=== PATIENT | female | born 1940 | race Caucasian/White ===

== ENCOUNTER 2018-05-29 10:11 | Inpatient (IN) | payer OTHER ==
[~2018-05-29] VITALS: Ht 160 cm; Wt 50.8 kg
[2018-05-29 10:11] VITALS: BP 138/86
[~2018-05-29 10:11] MED LIST: ACID REDUCER PO; AMITRIPTYLINE H10 M3 PO; AMITRIPTYLINE H25 M2 PO; AMITRIPTYLINE H75 M1 PO; AMLODIPINE BESY10 MG PO; ASPIR 8181 MG PO; AZITHROMYCIN 2250 MG PO; BACTRIM DS TAB1 EACH PO; BUSPIRONE HCL10 MG PO; CIPRO250 M1 PO; CIPROFLOXACIN500 M1 PO; CLONAZEPAM 0.50.5 M1 PO; CLONAZEPAM 1 MG1 M1 PO; CLONAZEPAM PO; COMPAZINE10 MG PO; CYCLOBENZAPRINE5 MG PO; CYMBALTA30 MG PO; DITROPAN XL5 MG PO; ESTRACE1 MG PO; FLEXERIL PO; HYDROCODON-ACE1 EAC8 PO; KEFLEX250 MG PO; LEVAQUIN 500 M500 M1 PO; LEVAQUIN 500 M500 MG PO; LIORESAL 10 MG10 MG PO; LISINOPRIL20 MG PO; LORCET 5-325 M1 EACH PO; LORTAB 5 MG/5001 TAB PO; MELATONIN3 MG PO; MOBIC15 MG PO; NEURONTIN 300300 M1 PO; NORCO 5-325 TA1 EACH PO; NORVASC 5 MG TAB5 MG PO; ONDANSETRON HCL4 M2 PO; OXYCODONE HCL 55 MG PO; PERCOCET 5-3251 EACH PO; PERCOCET 7.5-51 EACH PO; REQUIP 0.25 M0.25 MG PO; REQUIP 1 MG TABL1 M1 PO; SERTRALINE HCL100 MG PO; SIMVASTATIN40 MG PO; SIMVASTATIN80 MG PO; TRAZODONE HCL50 MG PO; TRIPLE ANTIBIOT28 G1 TP; TYLENOL325 MG PO; VENTOLIN HFA 1818 GM INH; VITAMIN D2000 UNIT PO; XANAX 0.25 MG0.25 MG PO; XANAX 0.5 MG0.5 M1 PO; XANAX 0.5 MG0.5 MG PO; XANAX XR1 MG PO; XANAX1 MG PO; ZESTRIL10 MG PO; ZOLOFT50 MG PO; ZZZQUIL50 MG/301 PO
[2018-05-29 11:11] LABS: ABSOLUTE BASOPHILS 0.1 thou/uL (0.0-0.2); ABSOLUTE EOSINOPHILS 0.3 thou/uL (0.0-0.7); ABSOLUTE LYMPHOCYTES 1.2 thou/uL (0.8-5.3); ABSOLUTE MONOCYTES 0.5 thou/uL (0.0-1.2); ABSOLUTE NEUTROPHILS 5.9 thou/uL (1.6-8.1); BASOPHILS 1.1 %; EOSINOPHILS 3.2 %; HEMATOCRIT 38.7 % (37.0-47.0); HEMOGLOBIN 12.7 gm/dL (12.0-15.0); LYMPHOCYTES 15.5 %; MCH 30.1 pg (26.0-34.0); MCHC 32.8 g/dL (28.0-37.0); MONOCYTES 6.4 %; MPV 6.7 fl. (7.2-11.1); NUCLEATED RBCS 0 /100WBC; PLATELET COUNT* 270 thou/uL (150-400); POLYS 73.8 %; RBC 4.21 mil/uL (4.20-5.00); RDW-CV 15.4 % (10.5-14.5)
[2018-05-29 11:22] LABS: BUN 38 mg/dL (7-18); CALCIUM 8.5 mg/dL (8.5-10.1); CHLORIDE 106 mmol/L (98-107); CO2 23 mmol/L (21-32); GLUCOSE 91 mg/dL (70-99)
[2018-05-29 11:29] LABS: ALBUMIN 3.4 g/dL (3.4-5.0); ALKALINE PHOSPHATASE 150 U/L (46-116); LIPASE 217 U/L (73-393); SGOT 102 U/L (15-37); SGPT 41 U/L (30-65); TOTAL BILIRUBIN 0.4 mg/dL (<0.1-1.0); TOTAL PROTEIN 6.7 g/dL (6.4-8.2); TROPONIN-I LEVEL <0.06 ng/mL (<0.06)
[2018-05-29 11:35] LABS: ANION GAP 10 mmol/L (7-16); SODIUM 139 mmol/L (136-145)
[2018-05-29 11:36] LABS: POTASSIUM 2.6 mmol/L (3.5-5.1)
[2018-05-29 12:49] LABS: URINE BILIRUBIN NEGATIVE (Negative); URINE BLOOD 2+ (Negative); URINE CLARITY CLEAR; URINE COLOR YELLOW; URINE GLUCOSE-RANDOM NEGATIVE (Negative); URINE KETONES TRACE (Negative); URINE LEUKOCYTES-REFLEX TRACE (Negative); URINE NITRITE-REFLEX NEGATIVE (Negative); URINE PROTEIN TRACE (Negative); URINE UROBILINOGEN 0.2 E.U./dl (0.2-1.0)
[2018-05-29 13:06] LABS: SQUAMOUS 0-3 Few /LPF (0-3); URINE WBC-REFLEX 0-5 Rare /HPF (0-5)
[2018-05-29 13:07] LABS: BACTERIA-REFLEX None Seen /HPF (None Seen); CRYSTALS None Seen /LPF (None Seen); HYALINE CASTS 0-3 Few /LPF (None Seen); URINE RBC 3-10 Few /HPF (0-2)
[2018-05-29 13:12] VITALS: BP 118/74
[2018-05-29 13:30] VITALS: BP 135/79
[2018-05-29 16:00] VITALS: BP 140/62
--- NOTE | 2018-05-29 16:18 | EKG ---
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 05/29/18 1618 1108 07 Primo Garvin MD, FACC /EPI
[2018-05-29 20:00] VITALS: BP 141/84
[2018-05-30] VITALS: BP 117/62
[2018-05-30 04:00] VITALS: BP 115/60
[2018-05-30 05:21] LABS: HEMATOCRIT 32.8 % (37.0-47.0); HEMOGLOBIN 10.8 gm/dL (12.0-15.0); MCH 30.8 pg (26.0-34.0); MCHC 32.9 g/dL (28.0-37.0); MCV 93.6 fL (80.0-100.0); MPV 7.6 fl. (7.2-11.1); RBC 3.5 mil/uL (4.20-5.00); RDW-CV 15.3 % (10.5-14.5); WBC 5.7 thou/uL (4.0-11.0)
[2018-05-30 06:01] LABS: CALCIUM 7.7 mg/dL (8.5-10.1); CREATININE 0.7 mg/dL (0.6-1.3); MAGNESIUM 2.1 mg/dL (1.8-2.4); POTASSIUM 3.4 mmol/L (3.5-5.1)
[2018-05-30 07:45] VITALS: BP 128/57
[2018-05-30 12:00] VITALS: BP 108/59
[2018-05-30 15:30] VITALS: BP 102/54
[2018-05-30 19:40] VITALS: BP 103/55
[2018-05-31] VITALS: BP 130/62
[2018-05-31 05:27] LABS: HEMOGLOBIN 10.1 gm/dL (12.0-15.0); MCH 30.5 pg (26.0-34.0); MCHC 32.7 g/dL (28.0-37.0); MCV 93.5 fL (80.0-100.0); MPV 7.6 fl. (7.2-11.1); RBC 3.31 mil/uL (4.20-5.00); RDW-CV 15.2 % (10.5-14.5); WBC 4.8 thou/uL (4.0-11.0)
[2018-05-31 05:55] LABS: CALCIUM 8.1 mg/dL (8.5-10.1); CREATININE 0.7 mg/dL (0.6-1.3); MAGNESIUM 1.8 mg/dL (1.8-2.4); POTASSIUM 3.7 mmol/L (3.5-5.1)
[2018-05-31 07:30] VITALS: BP 149/63
[2018-05-31 12:34] VITALS: BP 149/63
== END 2018-05-31 14:18 | disposition home or self-care (01) | DRG 392 ==
LOC: M.ERS 10:11 → M.2W 12:31 → M.TBA-ER 12:31 → M.2W 13:54
PROVIDERS: Nurse Practitioner Family; ADMIT Internal Medicine
DX: A08.4 Viral intestinal infection, unspecified (principal); N17.9 Acute kidney failure, unspecified; K59.00 Constipation, unspecified; I10 Essential (primary) hypertension; E78.00 Pure hypercholesterolemia, unspecified; E87.6 Hypokalemia; F41.0 Panic disorder [episodic paroxysmal anxiety]; D64.9 Anemia, unspecified; G89.29 Other chronic pain; R53.1 Weakness; M54.9 Dorsalgia, unspecified; Z90.49 Acquired absence of other specified parts of digestive tract; Z79.899 Other long term (current) drug therapy; Z90.710 Acquired absence of both cervix and uterus; Z88.8 Allergy status to other drugs, medicaments and biological substances; Z87.891 Personal history of nicotine dependence; Z88.6 Allergy status to analgesic agent; Z23 Encounter for immunization

== ENCOUNTER 2018-06-09 08:49 | Inpatient (IN) | payer OTHER ==
[~2018-06-09] VITALS: Ht 157.5 cm; Wt 46.7 kg
[2018-06-09 08:57] VITALS: BP 175/83
[2018-06-09] MEDS ORDERED: FLEXERIL PO (09:13)
[2018-06-09] MEDS ORDERED: DICLOFENAC SODI75 MG PO (09:14)
[2018-06-09] MEDS ORDERED: OMEPRAZOLE 20 M20 M1 PO (09:15)
[2018-06-09 09:36] LABS: HEMATOCRIT 33.1 % (37.0-47.0); HEMOGLOBIN 10.5 gm/dL (12.0-15.0); MCHC 31.8 g/dL (28.0-37.0); MCV 94.4 fL (80.0-100.0); NUCLEATED RBCS 0 /100WBC; PLATELET COUNT* 208 thou/uL (150-400); RDW-CV 16.2 % (10.5-14.5); WBC 12.6 thou/uL (4.0-11.0)
[2018-06-09 09:42] LABS: ANION GAP 5 mmol/L (7-16); BUN 16 mg/dL (7-18); CHLORIDE 104 mmol/L (98-107); CO2 30 mmol/L (21-32); CREATININE 0.8 mg/dL (0.6-1.3); GLUCOSE 112 mg/dL (70-99); POTASSIUM 4.2 mmol/L (3.5-5.1); SODIUM 139 mmol/L (136-145)
[2018-06-09 09:51] LABS: PROTIME 10.2 Seconds (9.20-11.50)
[2018-06-09 09:56] LABS: ALBUMIN 3.3 g/dL (3.4-5.0); ALKALINE PHOSPHATASE 235 U/L (46-116); LIPASE 371 U/L (73-393); NT-PRO BRAIN NAT PEPTIDE 436 pg/mL (<300); SGOT 949 U/L (15-37); SGPT 908 U/L (30-65); TOTAL BILIRUBIN 0.6 mg/dL (<0.1-1.0); TOTAL PROTEIN 6.7 g/dL (6.4-8.2); TROPONIN-I LEVEL <0.06 ng/mL (<0.06)
[2018-06-09 10:14] LABS: ABSOLUTE BASOPHILS 0.1 thou/uL (0.0-0.2); ABSOLUTE LYMPHOCYTES 0.9 thou/uL (0.8-5.3); ABSOLUTE MONOCYTES 0.1 thou/uL (0.0-1.2); ABSOLUTE NEUTROPHILS 11.5 thou/uL (1.6-8.1); PLATELET ESTIMATE ADEQUATE
[2018-06-09 11:10] LABS: URINE BILIRUBIN NEGATIVE (Negative); URINE BLOOD 3+ (Negative); URINE CLARITY CLEAR; URINE COLOR YELLOW; URINE GLUCOSE-RANDOM NEGATIVE (Negative); URINE KETONES NEGATIVE (Negative); URINE LEUKOCYTES-REFLEX NEGATIVE (Negative); URINE NITRITE-REFLEX NEGATIVE (Negative); URINE PROTEIN TRACE (Negative); URINE UROBILINOGEN 0.2 E.U./dl (0.2-1.0)
[2018-06-09 11:16] LABS: BACTERIA-REFLEX 1-9 Few /HPF (None Seen); CASTS None Seen /LPF (None Seen); CRYSTALS None Seen /LPF (None Seen); MUCUS None Seen strn/LPF (None Seen); SQUAMOUS 4-10 Moderate /LPF (0-3); URINE RBC >20 Many /HPF (0-2); URINE WBC-REFLEX 0-5 Rare /HPF (0-5)
[2018-06-09 12:30] VITALS: BP 154/84
[2018-06-09 12:40] VITALS: BP 148/72
[2018-06-09 16:26] VITALS: BP 123/71
--- NOTE | 2018-06-09 17:07 | 2DMMODE ---
[place] [address] 2 D/M-MODE ECHOCARDIOGRAM Name: NICHO DIAS Colette Room: [address] IN [facility]#: [id number] Admission: 06/09/18 Attend Phys: Clive Avila Discharge: Date of : 42 Date of Service: 06/09/18 1707 Report #: [id number] THIS REPORT FOR: //name// APPROVED REPORT Study performed: 06/09/2018 14:50:30 EXAM: Comprehensive 2D, Doppler, and color-flow Echocardiogram Patient Location: In-Patient Room #: [facility] Status: routine BSA: 1.48 HR: 92 bpm BP: 154/84 mmHg Rhythm: NSR Other Information Study Quality: Good Indications Syncope 2D Dimensions IVSd: 9.37 (7-11mm) LVOT Diam: 20.08 (18-24mm) LVDd: 38.90 mm PWd: 10.12 (7-11mm) LVDs: 21.64 (25-40mm) Aortic Root: 30.55 mm Volumes Left Atrial Volume (Systole) LA ESV Index: 27.60 mL/m2 Aortic Valve AoV Peak Jonathan.: 2.21 m/s AO Peak Gr.: 19.47 mmHg LVOT Max P.28 mmHg AO Mean Gr.: 9.81 mmHg LVOT Mean P.87 mmHg LVOT Max V: 1.35 m/s AO V2 VTI: 37.18 cm LVOT Mean V: 0.91 m/s JUMANA (VTI): 2.18 cm2 LVOT V1 VTI: 25.55 cm Mitral Valve E/A Ratio: 0.71 MV Decel. Time: 205.78 ms MV E Max Jonathan.: 0.97 m/[place] [address] 2 D/M-MODE ECHOCARDIOGRAM Name: NICHO DIAS Room: [address] IN M.R.#: [id number] Admission: 06/09/18 Attend Phys: Clive Avila Discharge: Date of : 42 Date of Service: 06/09/18 1707 Report #: [id number] MV PHT: 59.67 ms MVA (PHT): 3.69 cm2 TDI E/Lateral E': 10.78 E/Medial E': 12.13 Medial E' Jonathan.: 0.08 m/s Lateral E' Jonathan.: 0.09 m/s Pulmonary Valve PV Peak Jonathan.: 1.26 m/s PV Peak Gr.: 6.31 mmHg Tricuspid Valve RAP Estimate: 5.00 mmHg TR Peak Gr.: 19.68 mmHg RVSP: 25.00 mmHg PA Pressure: 25.00 mmHg Left Ventricle The left ventricle is normal size. There is normal LV segmental wall motion. There is normal left ventricular wall thickness. Left ventricular systolic function is normal. The left ventricular ejection fraction is within the normal range. LVEF is 60-65%. Grade I - abnormal relaxation pattern. Right Ventricle The right ventricle is normal size. The right ventricular systolic function is normal. Atria The left atrium size is normal. The right atrium size is normal. Aortic Valve Mild aortic valve sclerosis. Trace aortic regurgitation. There is no aortic valvular stenosis. Mitral Valve There is mitral annular calcification. Trace mitral regurgitation. No evidence of mitral valve stenosis. Tricuspid Valve The tricuspid valve is normal in structure. Trace tricuspid regurgitation. No pulmonary hypertension. Pulmonic Valve Pulmonic valve is not well visualized. There is no pulmonic valvular [place] [address] 2 D/M-MODE ECHOCARDIOGRAM Name: DIASNICHO Room: [address] IN [facility]#: [id number] Admission: 06/09/18 Attend Phys: Clive Avila Discharge: Date of : 42 Date of Service: 06/09/18 1707 Report #: [id number] Great Vessels The aortic root is normal in size. IVC is normal in size and collapses >50% with inspiration. Pericardium There is no pericardial effusion. <Conclusion> LVEF is 60-65%. Mild aortic valve sclerosis. <ELECTRONICALLY SIGNED> By: Austin Roberts MD, FACC 06/09/181706 06 06 Austin Roberts MD, FACC /INF
--- NOTE | 2018-06-09 17:08 | EKG ---
[place] [address] ELECTROCARDIOGRAM REPORT Name: NICHO DIAS Room: [address] ADM IN .R.#: [id number] Admission: 06/09/18 Attend Phys: Clive Sanchez, Discharge: Date of : 42 Report #: [id number] THIS REPORT FOR: //name// [facility] ED Test Date: 2018-06-09 Test Time: 09:06:36 Pat Name: NICHO DIAS Department: Room: [facility] Gender: F Crisis Specialist: [place] MALDONADO : 1940 Requested By: Chong Olivares Order Number: [id number] MD: Austin Roberts Measurements Intervals [place] Rate: 96 P: 37 [place]: 175 QRS: 67 QRSD: 131 T: 37 QT: 403 QTc: 510 Interpretive Statements Sinus rhythm Right bundle branch block Compared to ECG 05/29/2018 11:08:24 No significant changes Electronically Signed On 06-09-2018 17:08:03 CDT by Austin Roberts [email or web address] <ELECTRONICALLY SIGNED> By: Austin Roberts MD, [facility] 06/09/18 1708 0906 Austin Roberts MD, [facility] /EPI
[2018-06-09 19:35] VITALS: BP 129/72; BP 94/55
[2018-06-09 23:12] LABS: HEPATITIS B SURFACE AG Negative (Negative)
[2018-06-10] VITALS (7 sets, daily range): BP systolic 130–163; BP diastolic 66–91
[2018-06-10 04:54] LABS: HEMATOCRIT 28.3 % (37.0-47.0); HEMOGLOBIN 9.3 gm/dL (12.0-15.0); MCH 30.8 pg (26.0-34.0); MCHC 32.8 g/dL (28.0-37.0); MCV 93.9 fL (80.0-100.0); MPV 7.1 fl. (7.2-11.1); RBC 3.01 mil/uL (4.20-5.00); RDW-CV 15.5 % (10.5-14.5); WBC 9.5 thou/uL (4.0-11.0)
[2018-06-10 05:13] LABS: ALBUMIN 2.5 g/dL (3.4-5.0); CREATININE 0.7 mg/dL (0.6-1.3); MAGNESIUM 1.8 mg/dL (1.8-2.4); TOTAL BILIRUBIN 0.3 mg/dL (<0.1-1.0); TOTAL PROTEIN 5.4 g/dL (6.4-8.2)
[2018-06-10 05:47] LABS: POTASSIUM 3.1 mmol/L (3.5-5.1)
--- NOTE | 2018-06-10 10:58 | CON ---
[address] [address] CONSULTATION Name: NICHO DIAS Colette Room: [address] IN M.R.#: [id number] Admission: 06/09/18 Attend Phys: Clive Sanchez, Discharge: Date of : 42 Report #: [id number] THIS REPORT FOR: //name// CC: Primo Sanchez Neurology Consultation HISTORY OF PRESENT ILLNESS: The patient is a 77-year-old female who presents to the emergency room after a fall at home. Apparently, the patient fell sometime in the middle of the night and then lied on the floor for approximately 5 hours. Her daughter and grandson brought her to the emergency room. The patient states that she laid there because she did not want to wake anyone up at the time of night. Apparently, the patient had been here 2 weeks previously with a low potassium level. The patient lives with her daughter in a home that was purchased by her grandson. He plans on moving into the home, so he can take care of his grandmother. He would like to see her walk and he is concerned about the medications that she takes. PAST MEDICAL HISTORY: Anxiety. PAST SURGICAL HISTORY: Stomach ulcers surgically repaired times 2, half of stomach removed, disk removed, ovarian cyst removed, hysterectomy, bladder repair times 2, cervical spine surgery, appendectomy, cholecystectomy, back surgery. MEDICATIONS: Sertraline 100 mg daily, Requip 1 mg b.i.d., alprazolam 1 mg at bedtime, clonazepam 1 mg b.i.d., amitriptyline 25 mg at bedtime, cyclobenzaprine 10 mg t.i.d., diclofenac 75 mg b.i.d., omeprazole 20 mg daily. ALLERGIES: ASPIRIN, TYLENOL, SUMATRIPTAN. PHYSICAL EXAMINATION: VITAL SIGNS: Temperature 38.3, pulse rate 101, respiratory rate 17, blood pressure 148/72, bedside pulse oximetry 95% on 3 L nasal cannula. NEUROLOGIC: Cranial nerves 2-12 are grossly intact. Motor exam demonstrates symmetrical strength in all 4 extremities with tone and bulk normal. Reflexes are symmetrical throughout. Coordination demonstrates no evidence of dysmetria. Gait is not tested. LABORATORY DATA: Hematology: White blood cell count 12.6, hemoglobin 10.5, hematocrit 33.1, MCV 94.4, platelet count 208,000. Coagulation: INR 1. Urinalysis: 3+ blood. Chemistry: Sodium 139, potassium 4.2, chloride 104, carbon dioxide 30, BUN 16, creatinine 0.8, GFR 70, glucose 112, calcium 9, magnesium 2, total bilirubin 0.6, AST 949, ALT 908, alkaline phosphatase 235, creatinine kinase 1719. BNP 436, total protein 6.7, albumin 3.3, lipase 371. [place] [address] CONSULTATION Name: NICHO DIAS Colette Room: [address] IN .R.#: [id number] Admission: 06/09/18 Attend Phys: Clive Sanchez, Discharge: Date of : 42 Report #: [id number] IMAGING STUDIES: CT scan of the head demonstrates no acute intracranial abnormality. IMPRESSION: I am concerned about the medications the patient is taking. These medications can affect her balance. In particular, I am talking about clonazepam 1 mg b.i.d. and alprazolam 1 mg at bedtime. I have reduced the dose of alprazolam to 0.5 mg at bedtime. In the future, I think consideration should be given to reducing these medications to the smallest possible dose. The patient has elevated liver functions, I have ordered an ammonia level. I see that a hepatitis panel has been ordered and is pending. I also think therapy would be good for the patient. According to her grandson, she is quite sedentary. I thank you for your kind referral of the patient. We will continue to follow her with you. <ELECTRONICALLY SIGNED> By: Lana Haile DO 06/10/18 1058 1423 [id number] Haile DO /rashid
[2018-06-11] VITALS (7 sets, daily range): BP systolic 135–195; BP diastolic 76–971
[2018-06-11 05:02] LABS: HEMOGLOBIN 9.5 gm/dL (12.0-15.0); MCH 30.6 pg (26.0-34.0); MCHC 32.6 g/dL (28.0-37.0); MCV 93.7 fL (80.0-100.0); MPV 7.7 fl. (7.2-11.1); RBC 3.1 mil/uL (4.20-5.00); RDW-CV 15.6 % (10.5-14.5); WBC 7.5 thou/uL (4.0-11.0)
[2018-06-11 05:21] LABS: ALBUMIN 2.6 g/dL (3.4-5.0); CALCIUM 8.5 mg/dL (8.5-10.1); CREATININE 0.7 mg/dL (0.6-1.3); MAGNESIUM 1.7 mg/dL (1.8-2.4); POTASSIUM 3.7 mmol/L (3.5-5.1); TOTAL BILIRUBIN 0.3 mg/dL (<0.1-1.0); TOTAL PROTEIN 5.9 g/dL (6.4-8.2)
--- NOTE | 2018-06-11 07:39 | CON ---
[address] [address] CONSULTATION Name: LARISSANICHO Colette Room: [address] IN M.R.#: [id number] Admission: 06/09/18 Attend Phys: Clive Sanchez, Discharge: Date of : 42 Report #: [id number] THIS REPORT FOR: //name// CC: Primo Sanchez Clive Sanchez DATE OF SERVICE: 06/10/2018 REQUESTING PHYSICIAN: Dr. Sanchez. REASON FOR CONSULTATION: Rib fractures. DISCUSSION: The patient is a 77-year-old woman who was brought to the Emergency department yesterday. She apparently fallen in her bathroom at home, had fallen off the toilet. However, she cannot tell me how she fell. Apparently, laid on the floor for up to 5 hours. Reportedly, was hesitant to call for help as she did not want to bother other family members. She was seen in the ED then yesterday. Was complaining of some pain at that time in her throat, in her head. Chest x-ray was unremarkable. Her LFTs were abnormal. She did have a CT scan done of her abdomen. On that study, did reveal that she had fractures posteriorly on the 9th and 10th ribs. It was thought they were probably acute. She has been on oxygen since admission. Interestingly, however, she denies any pain on the left side. She is complaining of pain in her right chest. She is also quite upset that she is not getting more pain medication to keep her comfortable. She is a lifelong nonsmoker, but does have a history of significant secondhand smoke exposure. She has had episodes of pneumonia in the past. One of them also apparently was complicated by a parapneumonic effusion requiring thoracentesis. No surgery was required. It is not clear if she may have some underlying asthma or obstructive lung disease. She is not normally on any oxygen or inhalers at home. Group apparently has seen her in the past when she was in the hospital. Does not follow at least in our office at this time. She is an extremely poor historian. She is very tangential because she is trying to focus on events from some time back as well as concerns about her daughter and potential inability to continue to live at home alone. Currently, she is denying any shortness of breath. Minimal cough. She complains of a sore throat because has been difficult to swallow that has been present for some time. She does have a history also of partial gastrectomy; hysterectomy; cholecystectomy; back and neck surgery; right clavicular fracture; right arm fracture, details not clear; dyslipidemia; hypertension. [place] [address] CONSULTATION Name: DIASNICHO Room: [address] IN M.R.#: [id number] Admission: 06/09/18 Attend Phys: Clive Sanchez, Discharge: Date of : 42 Report #: [id number] probably has some baseline dementia as well. HOME MEDICATIONS: Reportedly have been omeprazole, Voltaren, Flexeril, amitriptyline, clonazepam, p.r.n. Xanax, ReQuip, and sertraline. ALLERGIES: ASPIRIN, ACETAMINOPHEN. SOCIAL HISTORY: Currently is a nonsmoker. However, did have secondhand smoke exposure. FAMILY HISTORY: Per old records is positive for lung cancer, coronary artery disease. REVIEW OF SYSTEMS: Question some of the reliability. It is extremely difficult to get from her as she tends to jump around. She does acknowledge difficulty swallowing because of her sore throat. Typically does not have any shortness of breath. She also notes she is hungry and wants food and water. States she does not want any additional testing done. Complaining of pain, right anterior chest wall, also her head. Denies any pain in the left chest area. She denies true syncope or palpitations. PHYSICAL EXAMINATION: GENERAL: The patient is an elderly woman. She does look chronically ill. She is currently, sitting up in a chair. Has O2 running at 2 liters per nasal cannula. She is alert. She is in no acute distress. Was quite emotional and starting to cry when she talks about family situations. Feels like people are being mean to her. HEENT: Head is normocephalic. Sclerae nonicteric. Mucous membranes do look a little dry. NECK: Negative for adenopathy. Neck veins are not full. She has no supraclavicular adenopathy. She does have a bit of firm area over her right clavicle (reportedly was fractured years ago). HEART: Regular with occasional extrasystole. Has a grade 1/6 systolic murmur. No S3 is heard. LUNGS: Reveal breath sounds to be just minimally diminished. She does have a few faint crackles heard in the bases bilaterally. There is no pain with palpation over her left chest wall. On the right, she does complain of pain right anterior chest wall. I do not see any bruising or point tenderness. ABDOMEN: Soft, without appreciable hepatosplenomegaly. EXTREMITIES: She has arthritic changes of her hands. No clubbing. Radial pulses are present. Lower extremities are thin. She has some muscle wasting. No definite edema is noted. SKIN: Warm and dry. NEUROLOGIC: She is moving all extremities. LABORATORY AND X-RAY FINDINGS: Echocardiogram done this admission revealed [facility] [address] [place] [address] CONSULTATION Name: NICHO DIAS Colette Room: [address] IN ..#: [id number] Admission: 06/09/18 Attend Phys: Clive Sanchez, Discharge: Date of : 42 Report #: [id number] preserved LV function at 60-65%. She had grade 1 diastolic dysfunction. RV was normal. She had no significant valvular disease. Chem profile: Her sodium is 143, potassium 3.1, BUN 9, creatinine 0.7. Transaminases are markedly elevated, those are improving. Bilirubin was normal. Albumin 2.5. White blood cell count 9500, hemoglobin 9.3, hematocrit 28.3, platelets 154,000. X-rays were reviewed. The chest x-ray done yesterday was a portable study. No acute findings are noted. She did have a CT scan done of her abdomen and pelvis. As noted above, posterior rib fractures on the left were noted. Reviewing her other imaging studies, however, she had a CT scan done of her abdomen on 05/29/2018. Rib fractures were noted at that time as well. IMPRESSION: 1. Left rib fractures. Date of injury unknown. She has no pain in this area. They were also noted on imaging studies done on 05/29/2018 suggesting it came from another fall or injury. 2. Status post fall. Does have some soft tissue injuries. She is complaining of right anterior chest wall pain. 3. Possible dementia. 4. Elevated LFTs (transaminase), improving. Evaluation underway. 5. Appears to be a significant fall risk. RECOMMENDATIONS: 1. Pain control is really the only thing necessary for her rib fractures at this time. She has no complications related to that. However, given her dementia and issues with falls, certainly need to be cautious and avoid oversedation or overmedicating. She has very poor insight into this. 2. Activity as tolerated. Minimize risk of developing pneumonia. 3. Wean off O2. 4. GI evaluation as per primary service and GI. 5. We can see again if needed. <ELECTRONICALLY SIGNED> By: Lian Rosario MD 06/11/18 0739 1125 0044Lian Rosario MD /nt
[2018-06-12] VITALS: BP 170/85
[2018-06-12 04:00] VITALS: BP 148/80
[2018-06-12 04:05] VITALS: BP 170/85
[2018-06-12 05:20] LABS: HEMOGLOBIN 10.2 gm/dL (12.0-15.0); MCH 30.5 pg (26.0-34.0); MCHC 32.9 g/dL (28.0-37.0); MCV 92.8 fL (80.0-100.0); MPV 7.4 fl. (7.2-11.1); RBC 3.34 mil/uL (4.20-5.00); RDW-CV 15.3 % (10.5-14.5); WBC 5.6 thou/uL (4.0-11.0)
[2018-06-12 06:24] LABS: ALBUMIN 2.9 g/dL (3.4-5.0); CALCIUM 8.7 mg/dL (8.5-10.1); CREATININE 0.7 mg/dL (0.6-1.3); MAGNESIUM 1.7 mg/dL (1.8-2.4); TOTAL BILIRUBIN 0.3 mg/dL (<0.1-1.0); TOTAL PROTEIN 6.5 g/dL (6.4-8.2)
[2018-06-12 08:45] VITALS: BP 155/94
[2018-06-12 10:07] LABS: ANA INTERPRETATION Positive (Negative)
--- NOTE | 2018-06-12 11:22 | CON ---
[address] [address] CONSULTATION Name: DIASELIJAHNICHO Colette Room: [address] IN M.R.#: [id number] Admission: 06/09/18 Attend Phys: Clive Sanchez, Discharge: Date of : 42 Report #: [id number] THIS REPORT FOR: //name// CC: Primo Sanchez DATE OF SERVICE: 06/10/2018 HISTORY OF PRESENT ILLNESS: This is a pleasant 77-year-old female with past medical history significant for peptic ulcer disease, hypertension, hyperlipidemia, who presented with one episode of syncope. The patient says that following that she recovered, however, was unable to stand up and had laid on the floor for a few hours. The patient denies any chest pain, nausea, vomiting with dizziness at this time, headaches or palpitations. GI service has been consulted for evaluation of elevated liver enzymes. The patient denies any prior history of liver disease. She denies any prior episodes of jaundice, weight loss or pruritus. The patient had a cholecystectomy performed in the remote past and reports that she had her surgery performed for peptic ulcer disease twice in the past. The patient denies any prior history of viral hepatitis. The patient also denies starting any new medications or taking any hgyz-bby-xxyuvoo or herbal supplements. PAST MEDICAL HISTORY: As mentioned above. The patient has a past medical history of hypertension, hyperlipidemia, chronic anemia and peptic ulcer disease. PAST SURGICAL HISTORY: The patient had disk surgery in 1972, ovarian cyst removed in 1963, hysterectomy in 1973, bladder repair in the , neck surgery in 1998. Remote history of appendectomy and cholecystectomy. SOCIAL HISTORY: The patient denies smoking, alcohol or recreational drug use. FAMILY HISTORY: There is no family history of liver disease or colorectal cancer. REVIEW OF SYSTEMS: A comprehensive 10-point review of systems is negative except for weakness and fatigue. PHYSICAL EXAMINATION: VITAL SIGNS: Temperature 37.0, pulse rate 101, respirations 20, blood pressure 94/55. GENERAL: The patient is alert, awake, oriented x 3. HEENT: Mucous membranes are moist. There is no congestion. NECK: Supple. There is no supraclavicular lymphadenopathy. CARDIOVASCULAR: Rate and rhythm regular, S1, [place] [address] CONSULTATION Name: NICHO DIAS Room: [address] IN [facility]#: [id number] Admission: 06/09/18 Attend Phys: Clive Sanchez, Discharge: Date of : 42 Report #: [id number] ABDOMEN: Soft. There is no distention, no guarding or rigidity. Bowel sounds are present. EXTREMITIES: Warm, well perfused. There is no edema. NEUROLOGIC: There is no focal neurological deficit. SKIN: Warm and dry. LABORATORY DATA: Hemoglobin 10.5, hematocrit 33.1, WBC count 12.6, platelet count 208. AST 949, ALT 908, alkaline phosphatase 235, total bilirubin 0.3. CT abdomen demonstrates acute fractures of the posterolateral left 9th and 10th ribs, chronic lumbar degenerative changes, atelectasis at both lung bases, bladder distended measuring 10 x 17 cm in thickness. Trauma in bile ducts. ASSESSMENT AND PLAN: A pleasant 77-year-old female with past medical history significant for hypertension, hyperlipidemia with prior history of peptic ulcer disease, status post surgery and cholecystectomy, who is presenting for evaluation of syncope. The patient was incidentally found to have elevated liver enzymes and the GI Service has been consulted for further evaluation. Based on the clinical history, the patient appears to have shock liver and the liver enzyme changes can be attributed to this. However, I would like to rule out acute viral hepatitis and acute autoimmune hepatitis. Labs for both have been sent. It is also pertinent to rule out portal or hepatic vein thrombosis as a possible cause of elevated liver enzymes. An abdominal ultrasound with Doppler has been ordered. Further evaluation will depend on the results of these tests. <ELECTRONICALLY SIGNED> By: Guero Haywood MD 06/12/18 1122 1749 0102Guero Haywood MD /nt
[2018-06-12 11:40] VITALS: BP 155/94
[2018-06-12 12:20] VITALS: BP 155/94
[2018-06-12 16:10] LABS: HEPATITIS B SURFACE AG Negative (Negative)
== END 2018-06-12 14:35 | disposition home health service (06) | DRG 314 ==
LOC: M.ERS 08:49 → M.2W 11:12 → M.TBA-ER 11:12 → M.2W 12:59
PROVIDERS: Emergency Medicine; Internal Medicine Gastroenterology; ADMIT Family Medicine
DX: I95.9 Hypotension, unspecified (principal); R65.11 Systemic inflammatory response syndrome (SIRS) of non-infectious origin with acute organ dysfunction; N39.0 Urinary tract infection, site not specified; S22.42XA Multiple fractures of ribs, left side, initial encounter for closed fracture; M62.82 Rhabdomyolysis; Z68.1 Body mass index [BMI] 19.9 or less, adult; E44.0 Moderate protein-calorie malnutrition; T50.995A Adverse effect of other drugs, medicaments and biological substances, initial encounter; E86.0 Dehydration; R55 Syncope and collapse; E87.6 Hypokalemia; G47.00 Insomnia, unspecified; F41.9 Anxiety disorder, unspecified; F32.9 Major depressive disorder, single episode, unspecified; G25.81 Restless legs syndrome; D64.9 Anemia, unspecified; K75.89 Other specified inflammatory liver diseases; R74.0 Nonspecific elevation of levels of transaminase and lactic acid dehydrogenase [LDH]; E78.00 Pure hypercholesterolemia, unspecified; I10 Essential (primary) hypertension; E78.5 Hyperlipidemia, unspecified; W18.11XA Fall from or off toilet without subsequent striking against object, initial encounter; Z90.49 Acquired absence of other specified parts of digestive tract; Z90.710 Acquired absence of both cervix and uterus; Z88.6 Allergy status to analgesic agent; Z88.8 Allergy status to other drugs, medicaments and biological substances; Z87.891 Personal history of nicotine dependence; Z87.11 Personal history of peptic ulcer disease; Y93.89 Activity, other specified; Y92.091 Bathroom in other non-institutional residence as the place of occurrence of the external cause; Y99.8 Other external cause status; Z87.311 Personal history of (healed) other pathological fracture; Z79.2 Long term (current) use of antibiotics; Z79.899 Other long term (current) drug therapy

== ENCOUNTER → 2018-06-20 | Outpatient (CLI) | payer OTHER ==
[~2018-06-20] MED LIST changes: +DICLOFENAC SODI75 MG PO; +OMEPRAZOLE 20 M20 M1 PO
== END ==
LOC: M.ULTRA 08:29
DX: K83.8 Other specified diseases of biliary tract (principal)

== ENCOUNTER 2018-09-05 15:49 | Emergency (ER) | payer OTHER ==
[~2018-09-05] VITALS: Ht 160 cm; Wt 45.4 kg
[2018-09-05 16:59] LABS: ABSOLUTE BASOPHILS 0.1 thou/uL (0.0-0.2); ABSOLUTE EOSINOPHILS 0.3 thou/uL (0.0-0.7); ABSOLUTE LYMPHOCYTES 1.5 thou/uL (0.8-5.3); ABSOLUTE MONOCYTES 0.5 thou/uL (0.0-1.2); ABSOLUTE NEUTROPHILS 3.9 thou/uL (1.6-8.1); BASOPHILS 1.2 %; EOSINOPHILS 5.4 %; HEMATOCRIT 26.2 % (37.0-47.0); HEMOGLOBIN 8.2 gm/dL (12.0-15.0); LYMPHOCYTES 23.7 %; MCH 26.3 pg (26.0-34.0); MCHC 31.4 g/dL (28.0-37.0); MONOCYTES 7.3 %; NUCLEATED RBCS 0 /100WBC; PLATELET COUNT* 333 thou/uL (150-400); POLYS 62.4 %; RBC 3.12 mil/uL (4.20-5.00); RDW-CV 16.7 % (10.5-14.5); WBC 6.3 thou/uL (4.0-11.0)
[2018-09-05 17:03] LABS: CALCIUM 8.6 mg/dL (8.5-10.1); CREATININE 1.1 mg/dL (0.6-1.3); INR 0.9; POTASSIUM 3.8 mmol/L (3.5-5.1); PROTIME 9.4 Seconds (9.20-11.50)
[2018-09-05 17:07] LABS: ALBUMIN 3.2 g/dL (3.4-5.0); MAGNESIUM 2.2 mg/dL (1.8-2.4); TOTAL BILIRUBIN 0.2 mg/dL (<0.1-1.0); TOTAL PROTEIN 6.5 g/dL (6.4-8.2)
[2018-09-05 17:17] LABS: URINE BILIRUBIN NEGATIVE (Negative); URINE BLOOD NEGATIVE (Negative); URINE CLARITY CLEAR; URINE COLOR YELLOW; URINE GLUCOSE-RANDOM NEGATIVE (Negative); URINE KETONES NEGATIVE (Negative); URINE LEUKOCYTES-REFLEX 1+ (Negative); URINE NITRITE-REFLEX NEGATIVE (Negative); URINE PROTEIN NEGATIVE (Negative); URINE SPECIFIC GRAVITY 1.015 (1.005-1.030); URINE UROBILINOGEN 0.2 E.U./dl (0.2-1.0)
[2018-09-05 17:38] LABS: SQUAMOUS 0-3 Few /LPF (0-3)
[2018-09-05 17:39] LABS: BACTERIA-REFLEX 1-9 Few /HPF (None Seen); CASTS None Seen /LPF (None Seen); CRYSTALS None Seen /LPF (None Seen); URINE RBC 0-2 Rare /HPF (0-2); URINE WBC-REFLEX 6-15 Few /HPF (0-5)
[2018-09-05 19:49] VITALS: BP 160/88
--- NOTE | 2018-09-06 18:44 | EKG ---
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 MEDINA : 1940 Requested By: Zoe yLons Order Number: [id number] MD: Juan Beatty Measurements Intervals [place] Rate: 80 P: 39 ND: 165 QRS: 53 QRSD: 135 T: 34 QT: 423 QTc: 488 Interpretive Statements Sinus rhythm Right bundle branch block Compared to ECG 06/09/2018 09:06:36 No significant changes Electronically Signed On 09-06-2018 18:44:46 AUTOMATIC VULCANIZING LEAD OPERATOR by Juan Beatty [email or web address] <ELECTRONICALLY SIGNED> By: Juan Beatty MD, [facility] 09/06/18 1844 1632 31 Juan Beatty MD, FACC /EPI
== END 2018-09-05 19:53 | disposition home or self-care (01) ==
LOC: M.ERS 15:49
PROVIDERS: Personal Emergency Response Attendant
DX: R41.82 Altered mental status, unspecified (principal); F41.0 Panic disorder [episodic paroxysmal anxiety]; I10 Essential (primary) hypertension; E78.00 Pure hypercholesterolemia, unspecified; Z90.49 Acquired absence of other specified parts of digestive tract; Z88.6 Allergy status to analgesic agent; Z86.2 Personal history of diseases of the blood and blood-forming organs and certain disorders involving the immune mechanism; Z88.8 Allergy status to other drugs, medicaments and biological substances; Z90.710 Acquired absence of both cervix and uterus; Z87.891 Personal history of nicotine dependence

== ENCOUNTER 2018-11-14 17:06 | Inpatient (IN) | payer OTHER ==
[~2018-11-14] VITALS: Ht 160 cm; Wt 49.9 kg
[2018-11-14 17:19] VITALS: BP 185/104
[2018-11-14] MEDS ORDERED: BUSPIRONE HCL10 MG PO (17:25)
[2018-11-14 17:39] LABS: ABSOLUTE EOSINOPHILS 0.1 thou/uL (0.0-0.7); ABSOLUTE LYMPHOCYTES 0.6 thou/uL (0.8-5.3); ABSOLUTE MONOCYTES 0.3 thou/uL (0.0-1.2); BASOPHILS 0.4 %; EOSINOPHILS 1.9 %; HEMATOCRIT 37.2 % (37.0-47.0); HEMOGLOBIN 12.4 gm/dL (12.0-15.0); LYMPHOCYTES 12.3 %; MCH 29.9 pg (26.0-34.0); MCHC 33.3 g/dL (28.0-37.0); MONOCYTES 6.2 %; MPV 6.9 fl. (7.2-11.1); NUCLEATED RBCS 0 /100WBC; PLATELET COUNT* 190 thou/uL (150-400); POLYS 79.2 %; RBC 4.13 mil/uL (4.20-5.00); RDW-CV 21.2 % (10.5-14.5)
[2018-11-14 17:53] LABS: ALBUMIN 3.6 g/dL (3.4-5.0); CALCIUM 9.2 mg/dL (8.5-10.1); CREATININE 0.9 mg/dL (0.6-1.3); POTASSIUM 3.5 mmol/L (3.5-5.1); TOTAL BILIRUBIN 0.4 mg/dL (<0.1-1.0); TOTAL PROTEIN 6.9 g/dL (6.4-8.2)
[2018-11-14 17:59] LABS: URINE BILIRUBIN NEGATIVE (Negative); URINE BLOOD 1+ (Negative); URINE CLARITY CLEAR; URINE COLOR YELLOW; URINE GLUCOSE-RANDOM NEGATIVE (Negative); URINE KETONES NEGATIVE (Negative); URINE PROTEIN NEGATIVE (Negative); URINE SPECIFIC GRAVITY 1.015 (1.005-1.030); URINE UROBILINOGEN 0.2 E.U./dl (0.2-1.0)
[2018-11-14 18:01] LABS: URINE LEUKOCYTES-REFLEX 2+ (Negative); URINE NITRITE-REFLEX POSITIVE (Negative)
[2018-11-14 18:05] LABS: MUCUS None Seen strn/LPF (None Seen); SQUAMOUS 0-3 Few /LPF (0-3)
[2018-11-14 18:06] LABS: BACTERIA-REFLEX >30 Many /HPF (None Seen); CASTS None Seen /LPF (None Seen); CRYSTALS None Seen /LPF (None Seen); URINE RBC 0-2 Rare /HPF (0-2); URINE WBC-REFLEX >25 Many /HPF (0-5)
[2018-11-14 18:11] LABS: ANISOCYTOSIS 2+
[2018-11-14 22:00] VITALS: BP 147/79
[2018-11-14 22:12] VITALS: BP 151/82
--- NOTE | 2018-11-15 02:32 | NUR ---
ASSUMED CARE OF PT FROM THE ER AT 2200. PT IS CONFUSED. VSS. NAVYA. PT IS MED SURG STATUS. PT IS SLEEPING QUIETLY IN BED. RESPIRATIONS ARE EVEN AND NONLABORED. WILL CONTINUE TO MONITOR PT.
[2018-11-15 08:28] VITALS: BP 125/79
--- NOTE | 2018-11-15 14:27 | NUR ---
Pt is A&O. Resides at home with family. Independent. Pt has a walker and cane at home that she can use for mobility. Hx of [facility]. No hx of SNF. Goal is home at ut. Following.
--- NOTE | 2018-11-15 15:06 | NUR ---
PT A/O, OCCASIONALLY CONFUSED. ALL VSS ON ROOM AIR. DENIES CP, SOA. DOES C/O BACK AND NECK PAIN-RECENT FALL-MEDICATED PER EMAR. INSTRUCTED ON USE OF CALL LIGHT FOR ASSIST. BED ALARM ON. PLEASE SEE ASSESSMENT FOR ADDITIONAL INFORMATION. WILL CONTINUE TO MONITOR
[2018-11-15 15:41] VITALS: BP 128/68
[2018-11-15 19:15] VITALS: BP 135/75
[2018-11-15 23:55] VITALS: BP 135/70
--- NOTE | 2018-11-16 02:58 | NUR ---
ASSUMED CARE OF PT AT 1900. PT IS CALM AND COOPERATIVE. VSS. PERRLA. NO COMPLAINTS OF PAIN. PT IS SLEEPING COMFORTABLY IN BED. RESPIRATIONS ARE EVEN AND NONLABORED. WILL CONTINUE TO MONITOR PT.
[2018-11-16 08:00] VITALS: BP 136/77
[2018-11-16] MEDS ORDERED: OXYCODONE HCL 55 MG PO (11:46)
[2018-11-16] MEDS ORDERED: LIDODERM1 EACH TRANSDERM (11:47)
[2018-11-16] MEDS ORDERED: CEFDINIR300 MG PO (11:47)
[2018-11-16 12:39] VITALS: BP 102/71
--- NOTE | 2018-11-16 13:38 | NUR ---
PT PREPARING FOR DISCHARGE TO HOME. PT INDICATES STRONG SOCIAL SUPPORT IN HOME. PT INDICATES SHE HAS ACCESS TO DME AT HOME. NSG AND PT INDICATE INDEP, UP AD ANETA MOBILITY IN ROOM. PT DECLINES PT SERVICES AT THIS TIME.
[2018-11-16 14:05] VITALS: BP 102/71
== END 2018-11-16 14:35 | disposition home or self-care (01) | DRG 690 ==
LOC: M.ERS 17:06 → M.2W 19:38 → M.TBA-ER 19:38 → M.2W 21:42
PROVIDERS: Nurse Practitioner Family; ADMIT Family Medicine
DX: N39.0 Urinary tract infection, site not specified (principal); F19.239 Other psychoactive substance dependence with withdrawal, unspecified; I10 Essential (primary) hypertension; E78.00 Pure hypercholesterolemia, unspecified; F41.9 Anxiety disorder, unspecified; M62.838 Other muscle spasm; Z90.710 Acquired absence of both cervix and uterus; Z90.49 Acquired absence of other specified parts of digestive tract; Z88.6 Allergy status to analgesic agent; Z88.8 Allergy status to other drugs, medicaments and biological substances; Z87.891 Personal history of nicotine dependence; W18.39XA Other fall on same level, initial encounter; Y93.89 Activity, other specified; Y92.89 Other specified places as the place of occurrence of the external cause; Y99.8 Other external cause status; Z79.899 Other long term (current) drug therapy

== ENCOUNTER 2019-01-25 11:30 | Emergency (ER) | payer OTHER ==
[~2019-01-25] VITALS: Ht 160 cm; Wt 45.4 kg
[~2019-01-25 11:30] MED LIST changes: +CEFDINIR300 MG PO; +LIDODERM1 EACH TRANSDERM
[2019-01-25 12:35] LABS: ABSOLUTE BASOPHILS 0.1 thou/uL (0.0-0.2); ABSOLUTE EOSINOPHILS 0.1 thou/uL (0.0-0.7); ABSOLUTE LYMPHOCYTES 1.2 thou/uL (0.8-5.3); ABSOLUTE MONOCYTES 0.4 thou/uL (0.0-1.2); ABSOLUTE NEUTROPHILS 2.7 thou/uL (1.6-8.1); BASOPHILS 1.2 %; HEMATOCRIT 36.3 % (37.0-47.0); HEMOGLOBIN 12.3 gm/dL (12.0-15.0); LYMPHOCYTES 27.4 %; MCH 31.4 pg (26.0-34.0); MCHC 33.8 g/dL (28.0-37.0); MCV 92.8 fL (80.0-100.0); MONOCYTES 8.5 %; MPV 6.9 fl. (7.2-11.1); NUCLEATED RBCS 0 /100WBC; PLATELET COUNT* 200 thou/uL (150-400); POLYS 59.9 %; RBC 3.92 mil/uL (4.20-5.00); RDW-CV 14.1 % (10.5-14.5); WBC 4.4 thou/uL (4.0-11.0)
[2019-01-25 12:42] LABS: ANION GAP 12 mmol/L (7-16); BUN 22 mg/dL (7-18); CALCIUM 9.2 mg/dL (8.5-10.1); CHLORIDE 104 mmol/L (98-107); CO2 23 mmol/L (21-32); GLUCOSE 98 mg/dL (70-99); SODIUM 139 mmol/L (136-145)
[2019-01-25 12:51] LABS: ALBUMIN 3.7 g/dL (3.4-5.0); ALKALINE PHOSPHATASE 87 U/L (46-116); LIPASE 221 U/L (73-393); SGOT 35 U/L (15-37); SGPT 17 U/L (30-65); TOTAL BILIRUBIN 0.4 mg/dL (<0.1-1.0); TROPONIN-I LEVEL <0.06 ng/mL (<0.06)
[2019-01-25 14:10] LABS: URINE BILIRUBIN NEGATIVE (Negative); URINE BLOOD 2+ (Negative); URINE CLARITY CLEAR; URINE COLOR DARK YELLOW; URINE GLUCOSE-RANDOM NEGATIVE (Negative); URINE KETONES NEGATIVE (Negative); URINE LEUKOCYTES-REFLEX 1+ (Negative); URINE NITRITE-REFLEX NEGATIVE (Negative); URINE PROTEIN TRACE (Negative); URINE SPECIFIC GRAVITY 1.015 (1.005-1.030); URINE UROBILINOGEN 0.2 E.U./dl (0.2-1.0)
[2019-01-25 14:16] LABS: SQUAMOUS >10 Many /LPF (0-3)
[2019-01-25 14:17] LABS: URINE RBC 3-10 Few /HPF (0-2)
[2019-01-25 14:18] LABS: BACTERIA-REFLEX 1-9 Few /HPF (None Seen)
[2019-01-25 14:19] LABS: CRYSTALS None Seen /LPF (None Seen); HYALINE CASTS 0-3 Few /LPF (None Seen); MUCUS 4-6 Moderate strn/LPF (None Seen)
[2019-01-25] MEDS ORDERED: BACTRIM DS TAB1 EACH PO (14:38)
[2019-01-25 14:51] VITALS: BP 126/76
--- NOTE | 2019-01-25 15:43 | EKG ---
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
== END 2019-01-25 14:52 | disposition home or self-care (01) ==
LOC: M.ERS 11:30
PROVIDERS: Nurse Practitioner Family
DX: K59.00 Constipation, unspecified (principal); R82.71 Bacteriuria; F41.0 Panic disorder [episodic paroxysmal anxiety]; I10 Essential (primary) hypertension; E78.00 Pure hypercholesterolemia, unspecified; Z86.2 Personal history of diseases of the blood and blood-forming organs and certain disorders involving the immune mechanism; Z90.710 Acquired absence of both cervix and uterus; Z90.49 Acquired absence of other specified parts of digestive tract; Z88.6 Allergy status to analgesic agent; Z88.8 Allergy status to other drugs, medicaments and biological substances; Z87.891 Personal history of nicotine dependence

== ENCOUNTER 2019-01-25 15:19 | Inpatient (IN) | payer OTHER ==
[~2019-01-25] VITALS: Ht 160 cm; Wt 53.5 kg
[2019-01-25 15:24] VITALS: BP 91/48
[2019-01-25 15:52] LABS: AMP/METHAMP Negative (Negative); BARBITURATES Negative (Negative); BENZODIAZEPINES POSITIVE (Negative); COCAINE Negative (Negative); METHADONE Negative (Negative); OPIATES Negative (Negative); PCP Negative (Negative); THC Negative (Negative)
[2019-01-25 18:36] VITALS: BP 197/99
[2019-01-25 19:08] VITALS: BP 168/91
[2019-01-25 20:00] VITALS: BP 148/91
[2019-01-26] VITALS: BP 160/95
[2019-01-26 04:00] VITALS: BP 156/80
[2019-01-26 08:00] VITALS: BP 142/92
--- NOTE | 2019-01-26 10:41 | EKG ---
[place] [address] ELECTROCARDIOGRAM REPORT Name: NICHO DIAS Room: [address] ADM IN .R.#: [id number] Admission: 01/25/19 Attend Phys: Clive Sanchez, Discharge: Date of : 42 Report #: [id number] THIS REPORT FOR: //name// [facility] ED Test Date: 2019-01-25 Test Time: 15:33:30 Pat Name: NICHO DIAS Department: Room: [facility] Gender: F Team Assistant: NANDA : 1940 Requested By: Juan M Hawthorne Order Number: [id number] MD: Austin Roberts Measurements Intervals [place] Rate: 68 P: 27 KS: 206 QRS: 53 QRSD: 149 T: 33 QT: 485 QTc: 516 Interpretive Statements Sinus rhythm Right bundle branch block Compared to ECG 01/25/2019 12:30:44 No significant changes Electronically Signed On 01-26-2019 10:40:53 CDT by Austin Roberts [email or web address] <ELECTRONICALLY SIGNED> By: Austin Roberts MD, [facility] 01/26/19 1040 1533 1533 Austin Roberts MD, FACC /EPI
[2019-01-26 16:07] VITALS: BP 183/103
[2019-01-26 20:00] VITALS: BP 166/97
[2019-01-27] VITALS: BP 153/95
[2019-01-27 04:00] VITALS: BP 179/94
[2019-01-27 05:25] VITALS: BP 132/80
[2019-01-27 08:00] VITALS: BP 139/80
[2019-01-27 12:41] VITALS: BP 125/86
[2019-01-27] MEDS ORDERED: EFFEXOR XR37.5 MG PO (15:08)
[2019-01-27 15:25] VITALS: BP 125/86
[2019-01-27] MEDS ORDERED: COLACE100 MG PO (16:10)
[2019-01-27] MEDS ORDERED: MIRALAX17 GM PO (16:11)
== END 2019-01-27 16:16 | disposition home or self-care (01) | DRG 917 ==
LOC: M.ERS 15:19 → M.2W 17:12 → M.TBA-ER 17:12 → M.2W 18:53
PROVIDERS: Emergency Medicine Emergency Medical Services; ADMIT Family Medicine
DX: T50.901A Poisoning by unspecified drugs, medicaments and biological substances, accidental (unintentional), initial encounter (principal); G93.41 Metabolic encephalopathy; I16.0 Hypertensive urgency; R55 Syncope and collapse; G89.29 Other chronic pain; K59.00 Constipation, unspecified; E78.00 Pure hypercholesterolemia, unspecified; I10 Essential (primary) hypertension; Z90.49 Acquired absence of other specified parts of digestive tract; Z88.6 Allergy status to analgesic agent; Z79.899 Other long term (current) drug therapy

== ENCOUNTER 2020-02-03 17:42 | Emergency (ER) | payer OTHER ==
[~2020-02-03] VITALS: Ht 160 cm; Wt 42.6 kg
[~2020-02-03 17:42] MED LIST changes: +COLACE100 MG PO; +EFFEXOR XR37.5 MG PO; +MIRALAX17 GM PO
[2020-02-03] MEDS ORDERED: TRAMADOL 50 MG50 MG PO (20:07)
[2020-02-03] MEDS ORDERED: ONDANSETRON HCL4 M2 PO (20:07)
[2020-02-03 20:50] VITALS: BP 162/84
== END 2020-02-03 21:11 | disposition left against medical advice (07) ==
LOC: M.ERS 17:42
DX: S32.89XA Fracture of other parts of pelvis, initial encounter for closed fracture (principal); S22.31XA Fracture of one rib, right side, initial encounter for closed fracture; S16.1XXA Strain of muscle, fascia and tendon at neck level, initial encounter; S80.01XA Contusion of right knee, initial encounter; M25.511 Pain in right shoulder; E16.2 Hypoglycemia, unspecified; I10 Essential (primary) hypertension; D64.9 Anemia, unspecified; F41.0 Panic disorder [episodic paroxysmal anxiety]; E78.00 Pure hypercholesterolemia, unspecified; Z79.899 Other long term (current) drug therapy; Z90.49 Acquired absence of other specified parts of digestive tract; Z90.710 Acquired absence of both cervix and uterus; Z88.6 Allergy status to analgesic agent; Z88.8 Allergy status to other drugs, medicaments and biological substances; W10.9XXA Fall (on) (from) unspecified stairs and steps, initial encounter; Y93.89 Activity, other specified; Y92.89 Other specified places as the place of occurrence of the external cause; Y99.8 Other external cause status

== ENCOUNTER 2020-02-05 11:41 | Inpatient (IN) | payer OTHER ==
[~2020-02-05] VITALS: Ht 160 cm; Wt 47.6 kg
[~2020-02-05 11:41] MED LIST changes: +TRAMADOL 50 MG50 MG PO
[2020-02-05 11:46] VITALS: BP 167/96
[2020-02-05 12:05] LABS: ABSOLUTE BASOPHILS 0.1 thou/uL (0.0-0.2); ABSOLUTE EOSINOPHILS 0.1 thou/uL (0.0-0.7); ABSOLUTE MONOCYTES 0.6 thou/uL (0.0-1.2); ABSOLUTE NEUTROPHILS 6.7 thou/uL (1.6-8.1); BASOPHILS 0.6 %; EOSINOPHILS 1.4 %; HEMATOCRIT 34.5 % (37.0-47.0); HEMOGLOBIN 11.8 gm/dL (12.0-15.0); LYMPHOCYTES 11.7 %; MCH 32.7 pg (26.0-34.0); MCHC 34.1 g/dL (28.0-37.0); MCV 95.9 fL (80.0-100.0); MONOCYTES 6.9 %; MPV 7.2 fl. (7.2-11.1); NUCLEATED RBCS 0 /100WBC; PLATELET COUNT* 156 thou/uL (150-400); POLYS 79.4 %; RDW-CV 13.5 % (10.5-14.5); WBC 8.4 thou/uL (4.0-11.0)
[2020-02-05 12:14] LABS: CALCIUM 8.5 mg/dL (8.5-10.1); CREATININE 0.8 mg/dL (0.6-1.3); POTASSIUM 3.1 mmol/L (3.5-5.1)
[2020-02-05 12:19] LABS: ALBUMIN 3.6 g/dL (3.4-5.0); APTT 21.7 Seconds (25.0-31.3); PROTIME 10.4 Seconds (9.20-11.50); TOTAL BILIRUBIN 0.4 mg/dL (<0.1-1.0); TOTAL PROTEIN 7.1 g/dL (6.4-8.2)
[2020-02-05 12:40] LABS: URINE BILIRUBIN NEGATIVE (Negative); URINE BLOOD NEGATIVE (Negative); URINE CLARITY CLEAR; URINE COLOR YELLOW; URINE GLUCOSE-RANDOM NEGATIVE (Negative); URINE KETONES NEGATIVE (Negative); URINE LEUKOCYTES-REFLEX NEGATIVE (Negative); URINE NITRITE-REFLEX NEGATIVE (Negative); URINE PROTEIN NEGATIVE (Negative); URINE UROBILINOGEN 0.2 E.U./dl (0.2-1.0)
--- NOTE | 2020-02-05 13:07 | NUR ---
FLACO NOTIFIED UPON PT RETURN FROM CT. PT CONNECTED TO O2 AND MONITOR
[2020-02-05 14:23] LABS: AMP/METHAMP Negative (Negative); BARBITURATES Negative (Negative); BENZODIAZEPINES POSITIVE (Negative); COCAINE Negative (Negative); METHADONE Negative (Negative); OPIATES Negative (Negative); PCP Negative (Negative); THC Negative (Negative)
--- NOTE | 2020-02-05 15:31 | EKG ---
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
[2020-02-05 17:00] VITALS: BP 163/91
[2020-02-05 20:30] VITALS: BP 124/60
--- NOTE | 2020-02-06 04:20 | NUR ---
ASSUMED CARE FROM PREVIOUS SHIFT PT C/O ANXIETY MD NOTIFED MEDICATION ORDERED AND GIVEN PT RESTED WELL THROUGHOUT HOURLY ROUNDS WILL CONTINUE WITH CURRENT PLAN OF CARE.
[2020-02-06 08:00] VITALS: BP 125/65
--- NOTE | 2020-02-06 14:09 | NUR ---
SPOKE WITH PT.S DAUGHTER,ASHIA. PT.LIVES WITH HER AND HER . FELL DOWN THE STAIRS LETTING DOGS OUT WHILE NO ONE WAS HOME. NORMALLY DAUGHTER IS WITH HER 21/03. WAS FAIRLY INDEPENDENT PRIOR TO FALL. DAUGHTER SAID THEY HAVE HAD TO TAKE AWAY PT'S CAR, ALSO ACCESS TO HER MEDICATIONS. ASHIA DISPENSES HER MEDS TO HER DAILY. SHE WOULD BE AGREEABLE TO HER GOING TO ACUTE REHAB UNIT BUT DOES NOT WANT HER TO GO TO A SNF. SHE IS AFRAID WITH ALL OF THE COVID GOING AROUND. PT.HAS NOT HAD THERAPY YET TODAY. TOLD HER WE WOULD NEED TO WAIT TO SEE HOW PT.DOES WITH PT/OT AND THEN WE COULD DISCUSS DISCHARGE PLANNING FURTHER.
[2020-02-06 16:00] VITALS: BP 127/63
--- NOTE | 2020-02-06 17:15 | NUR ---
ASSUMED CARE OF PATIENT AT APPROX 0730. ALERT AND ORIENTED X4. ASSESSMENT COMPLETED AND CHARTED. VSS ON ROOM AIR. COMPLAINTS OF PAIN ADDRESSED WITH OXY IR AND FLEXERIL. FLUIDS INFUSED ORDERED. PATIENT UP AND WORKED WITH THERAPIES THIS AFTERNOON. NO OTHER COMPLAINTS THIS SHIFT. FALL PRECAUTIONS IN PLACE. CALL LIGHT WITHIN REACH. HOURLY ROUNDS COMPLETED. WILL CONTINUE WITH PLAN OF CARE.
[2020-02-06 20:00] VITALS: BP 162/94
--- NOTE | 2020-02-07 05:12 | NUR ---
PT A&O X 3-4, FORGETFUL AT TIMES. MEDS GIVEN ORDERED. XANAX GIVEN PER PT REQUEST FOR ANXIETY. PAIN MANAGED WITH NORCO. PT SLEEPING THROUGH THE NIGHT. ALVA IN PLACE. WILL CONTINUE TO MONITOR.
[2020-02-07 08:20] VITALS: BP 119/65
[2020-02-07 09:45] LABS: ALBUMIN 2.8 g/dL (3.4-5.0); CALCIUM 8.1 mg/dL (8.5-10.1); CREATININE 0.9 mg/dL (0.6-1.3); MAGNESIUM 1.8 mg/dL (1.8-2.4); PHOSPHORUS* 1.9 mg/dL (2.5-4.9); POTASSIUM 3.2 mmol/L (3.5-5.1)
--- NOTE | 2020-02-07 10:24 | NUR ---
Nutrition: consult for poor intake. Pt reported feeling nauseauted at visit. Reported she normally does not eat much and is always thin. UBW 95-100 lb. Pt does not like supplements. Asked for pudding. K 3.1, albumin WNL. Meds reviewed. Assesed at low nutrition risk at this time.
[2020-02-07] MEDS ORDERED: TRAMADOL 50 MG50 MG PO (11:07)
[2020-02-07] MEDS ORDERED: OXYCODONE HCL 55 MG PO (11:07)
--- NOTE | 2020-02-07 14:00 | NUR ---
INFORMED PT.EARLIER THAT SHE WAS GOING TO GET TO GO HOME TODAY. CALLED PTS DAUGHTER,MOSES, TO INFORM HER OF DISCHARGE. SHE SAID SHE WAS GETTING HER ROOM READY AND SHE COULD PICK HER UP ABOUT 4:30 OR 5. SHE WILL CALL WHEN SHE IS ON HER WAY TO GET HER. [facility] HER MOM HAD BEFORE. FAXED DISCHARGE ORDERS,H&P AND CONSULT TO [facility] . CALL FROM JODI/Modanisa STATING THEY COULD NOT ACCEPT TO SERVICE THEY WERE 'FULL'. GET RN INFORMED DAUGHTER THAT CM WOULD SECURE ANOTHER HOME HEALTH CO AND CALL HER IN AM.
[2020-02-07 15:50] VITALS: BP 119/65
--- NOTE | 2020-02-07 17:40 | NUR ---
ASSUMED CARE OF PATIENT AT APPROX 0730. ALERT AND ORIENTED X4. ASSESSMENT COMPLETED AND CHARTED. VSS ON ROOM AIR. COMPLAINT OF PAIN ADDRESSED WITH ORAL PAIN MEDICATIONS, LIDOCAINE PATCH, AND MUSCLE RELAXER. FLUIDS INFUSED ORDERED. PATIENT UP WITH GAITBELT AND WALKER TO THE BATHROOM. PATIENT DISCHARGED WITH ALL PERSONAL BELONGINGS, PRESCRIPTIONS AND DISCHARGE INFORMATION.
== END 2020-02-07 17:30 | disposition home or self-care (01) | DRG 543 ==
LOC: M.ERS 11:41 → M.ORTHSURG 12:43 → M.TBA-ER 12:43 → M.ORTHSURG 17:17
PROVIDERS: Family Medicine; ADMIT Family Medicine; ATTEND Family Medicine
DX: M80.051A Age-related osteoporosis with current pathological fracture, right femur, initial encounter for fracture (principal); S22.31XA Fracture of one rib, right side, initial encounter for closed fracture; I10 Essential (primary) hypertension; E78.00 Pure hypercholesterolemia, unspecified; G89.4 Chronic pain syndrome; K59.00 Constipation, unspecified; K21.9 Gastro-esophageal reflux disease without esophagitis; F41.9 Anxiety disorder, unspecified; F32.9 Major depressive disorder, single episode, unspecified; M54.9 Dorsalgia, unspecified; Z90.710 Acquired absence of both cervix and uterus; Z90.49 Acquired absence of other specified parts of digestive tract; Z88.6 Allergy status to analgesic agent; Z88.8 Allergy status to other drugs, medicaments and biological substances; Z87.891 Personal history of nicotine dependence; Z79.899 Other long term (current) drug therapy; W18.39XA Other fall on same level, initial encounter; Y93.89 Activity, other specified; Y92.89 Other specified places as the place of occurrence of the external cause; Y99.8 Other external cause status

== ENCOUNTER → 2020-12-17 | Outpatient (CLI) | payer OTHER ==
[~2020-12-17] VITALS: Ht 160 cm; Wt 44.9 kg
[2020-12-17 12:04] VITALS: BP 108/77
== END ==
LOC: M.MRI 10:00 → M.INT 11:00
PROVIDERS: ATTEND Family Medicine
DX: S34.01XA Concussion and edema of lumbar spinal cord, initial encounter (principal); S22.088A Other fracture of T11-T12 vertebra, initial encounter for closed fracture; S32.048A Other fracture of fourth lumbar vertebra, initial encounter for closed fracture; S32.010D Wedge compression fracture of first lumbar vertebra, subsequent encounter for fracture with routine healing; M51.9 Unspecified thoracic, thoracolumbar and lumbosacral intervertebral disc disorder; M47.816 Spondylosis without myelopathy or radiculopathy, lumbar region; M48.04 Spinal stenosis, thoracic region; X58.XXXA Exposure to other specified factors, initial encounter; Y93.89 Activity, other specified; Y92.89 Other specified places as the place of occurrence of the external cause; Y99.8 Other external cause status

== ENCOUNTER → 2021-01-05 | Outpatient (CLI) | payer OTHER ==
[~2021-01-05] VITALS: Ht 154.9 cm; Wt 45.4 kg
[2021-01-05 08:14] VITALS: BP 168/79
[2021-01-05 08:22] LABS: HEMATOCRIT 37.9 % (37.0-47.0); HEMOGLOBIN 12.6 gm/dL (12.0-15.0); MCH 31.6 pg (26.0-34.0); MCHC 33.2 g/dL (28.0-37.0); MCV 95.2 fL (80.0-100.0); MPV 6.9 fl. (7.2-11.1); RBC 3.98 mil/uL (4.20-5.00); RDW-CV 13.2 % (10.5-14.5); WBC 5.6 thou/uL (4.0-11.0)
[2021-01-05 08:25] VITALS: BP 168/79
[2021-01-05 08:30] LABS: CALCIUM 9.7 mg/dL (8.5-10.1); POTASSIUM 3.8 mmol/L (3.5-5.1)
[2021-01-05 08:33] LABS: APTT 23.2 Seconds (25.0-31.3); PROTIME 10.3 Seconds (9.20-11.50)
[2021-01-05 09:54] VITALS: BP 168/86
[2021-01-05 10:12] VITALS: BP 169/87
[2021-01-05 10:30] VITALS: BP 137/91
[2021-01-05 10:41] VITALS: BP 159/96
== END | disposition home or self-care (01) ==
LOC: M.INT 12-25 09:00
PROVIDERS: ATTEND Radiology Diagnostic Radiology
DX: M80.08XA Age-related osteoporosis with current pathological fracture, vertebra(e), initial encounter for fracture (principal); M54.9 Dorsalgia, unspecified; I10 Essential (primary) hypertension; E78.00 Pure hypercholesterolemia, unspecified; D64.9 Anemia, unspecified; G43.909 Migraine, unspecified, not intractable, without status migrainosus; F41.9 Anxiety disorder, unspecified; Z98.890 Other specified postprocedural states; Z79.899 Other long term (current) drug therapy; Z90.49 Acquired absence of other specified parts of digestive tract; Z90.710 Acquired absence of both cervix and uterus; Z88.8 Allergy status to other drugs, medicaments and biological substances

== ENCOUNTER 2021-07-04 14:34 | Emergency (ER) | payer OTHER ==
[~2021-07-04] VITALS: Ht 157.5 cm; Wt 43.1 kg
[2021-07-04] MEDS ORDERED: ZINC50 M1 PO (14:56)
[2021-07-04] MEDS ORDERED: MACROBID 100 M100 MG PO (14:57)
[2021-07-04] MEDS ORDERED: AMLODIPINE BESY10 MG PO (14:57)
[2021-07-04] MEDS ORDERED: PROBIOTIC1 EAC7 PO (14:57)
[2021-07-04] MEDS ORDERED: VITAMIN C1000 MG PO (14:57)
[2021-07-04] MEDS ORDERED: MELATONIN10 M3 PO (14:58)
[2021-07-04] MEDS ORDERED: DESYREL150 MG PO (14:58)
[2021-07-04] MEDS ORDERED: VITAMIN D350 MCG PO (14:58)
[2021-07-04 15:35] LABS: ABSOLUTE BASOPHILS 0.1 thou/uL (0.0-0.2); ABSOLUTE EOSINOPHILS 0.3 thou/uL (0.0-0.7); ABSOLUTE LYMPHOCYTES 1.3 thou/uL (0.8-5.3); ABSOLUTE MONOCYTES 0.5 thou/uL (0.0-1.2); ABSOLUTE NEUTROPHILS 3.9 thou/uL (1.6-8.1); BASOPHILS 0.9 %; EOSINOPHILS 4.4 %; HEMATOCRIT 35.5 % (37.0-47.0); LYMPHOCYTES 21.2 %; MCH 32.7 pg (26.0-34.0); MCHC 33.6 g/dL (28.0-37.0); MCV 97.2 fL (80.0-100.0); MONOCYTES 7.6 %; MPV 6.8 fl. (7.2-11.1); NUCLEATED RBCS 0 /100WBC; PLATELET COUNT* 207 thou/uL (150-400); POLYS 65.9 %; RBC 3.65 mil/uL (4.20-5.00); WBC 5.9 thou/uL (4.0-11.0)
[2021-07-04 15:44] LABS: CALCIUM 9.2 mg/dL (8.5-10.1); POTASSIUM 3.3 mmol/L (3.5-5.1)
[2021-07-04 15:49] LABS: ALBUMIN 3.4 g/dL (3.4-5.0); TOTAL BILIRUBIN 0.2 mg/dL (<0.1-1.0); TOTAL PROTEIN 6.9 g/dL (6.4-8.2)
[2021-07-04] MEDS ORDERED: MOBIC7.5 MG PO (16:40)
[2021-07-04 17:07] VITALS: BP 150/77
--- NOTE | 2021-07-05 10:19 | EKG ---
[place] [address] ELECTROCARDIOGRAM REPORT Name: NICHO DIAS Room: [facility]#: [id number] Admission: 07/04/21 Attend Phys: Discharge: 07/04/21 Date of : 42 Date of Service: 07/04/21 1518 Report #: [id number] THIS REPORT FOR: //name// [facility] ED Test Date: 2021-07-04 Test Time: 15:18:53 Pat Name: NICHO DIAS Department: Room: Gender: F Crisis Intervention Specialist: : 1940 Requested By: Mingo Morin Order Number: [id number] MD: Austin Roberts Measurements Intervals [place] Rate: 74 P: 46 OR: 186 QRS: 64 QRSD: 136 T: 51 QT: 428 QTc: 475 Interpretive Statements Sinus rhythm artifact noted Right bundle branch block Compared to ECG 02/05/2020 11:52:17 No significant changes Electronically Signed On 07-05-2021 10:19:09 CORRECTIONAL TREATMENT SPECIALIST by Austin Roberts [email or web address] <ELECTRONICALLY SIGNED> By: Austin Roberts MD, [facility] 07/05/21 1019 1518 1518 Austin Roberts MD, [facility] /EPI
== END 2021-07-04 17:08 | disposition home or self-care (01) ==
LOC: M.ERS 14:34
PROVIDERS: Nurse Practitioner Psychiatric/Mental Health
DX: S32.029A Unspecified fracture of second lumbar vertebra, initial encounter for closed fracture (principal); R53.1 Weakness; I10 Essential (primary) hypertension; E78.00 Pure hypercholesterolemia, unspecified; F03.90 Unspecified dementia, unspecified severity, without behavioral disturbance, psychotic disturbance, mood disturbance, and anxiety; F41.0 Panic disorder [episodic paroxysmal anxiety]; Z87.42 Personal history of other diseases of the female genital tract; Z98.890 Other specified postprocedural states; Z90.49 Acquired absence of other specified parts of digestive tract; Z79.899 Other long term (current) drug therapy; Z79.2 Long term (current) use of antibiotics; Z88.6 Allergy status to analgesic agent; Z88.8 Allergy status to other drugs, medicaments and biological substances; Z87.891 Personal history of nicotine dependence; W22.8XXA Striking against or struck by other objects, initial encounter; Y93.89 Activity, other specified; Y92.89 Other specified places as the place of occurrence of the external cause; Y99.8 Other external cause status

== ENCOUNTER → 2021-07-28 | Outpatient (CLI) | payer OTHER ==
[~2021-07-28] MED LIST changes: +DESYREL150 MG PO; +MACROBID 100 M100 MG PO; +MELATONIN10 M3 PO; +MOBIC7.5 MG PO; +PROBIOTIC1 EAC7 PO; +VITAMIN C1000 MG PO; +VITAMIN D350 MCG PO; +ZINC50 M1 PO
== END ==
LOC: M.RAD 10:20
PROVIDERS: ATTEND Nurse Practitioner Family
DX: Z13.820 Encounter for screening for osteoporosis (principal); M81.0 Age-related osteoporosis without current pathological fracture